=== PATIENT | male | born 1935 | race Caucasian/White ===

== ENCOUNTER 2020-06-17 13:45 | Outpatient (CLI) | payer MEDICARE ==
[2020-06-17] MEDS ORDERED: APIX5TAB PO (14:23)
== END 2020-06-17 23:59 | disposition home or self-care (01) ==
LOC: STAR 13:45
PROVIDERS: ATTEND Orthopaedic Surgery
DX: Z01.812 Encounter for preprocedural laboratory examination (principal); Z20.822 Contact with and (suspected) exposure to COVID-19; R22.31 Localized swelling, mass and lump, right upper limb; M19.041 Primary osteoarthritis, right hand; I48.91 Unspecified atrial fibrillation; R94.31 Abnormal electrocardiogram [ECG] [EKG]
CPT/HCPCS: 93005; U0003

== ENCOUNTER 2020-06-22 12:33 | Day surgery (SDC) | payer MEDICARE ==
[~2020-06-22] VITALS: Ht 182.9 cm; Wt 87.0 kg
[~2020-06-22 12:33] MED LIST: APIX5TAB PO
[2020-06-22 14:09] VITALS: BP 138/95
[2020-06-22] MEDS ORDERED: CHLORHEXIDINE 15 ML UDC ONE (14:10)
[2020-06-22] MEDS ORDERED: BUPIVACAINE/PF 0.5% ONE (14:13)
[2020-06-22] MEDS ORDERED: LACTATED RINGERS 1,000 ML IV SCH (14:30)
[2020-06-22] MEDS ORDERED: CHLORHEXIDINE 15 ML UDC PO ONE (14:30)
[2020-06-22] MEDS ORDERED: PROPOFOL 10 MG/ML, 20ML ONE (15:25)
[2020-06-22] MEDS ORDERED: ONDANSETRON 2MG/ML, 2ML ONE (15:25)
[2020-06-22] MEDS ORDERED: CEFAZOLIN 1,000 MG ONE (15:25)
[2020-06-22] MEDS ORDERED: FENTANYL PF 100 MCG/2ML ONE (15:59)
[2020-06-22] MEDS ORDERED: HYDROmorphone 1 MG/ML, 1ML INJ IVPush PRN (16:30)
[2020-06-22] MEDS ORDERED: LORazepam 2 MG/ML, 1ML IVPush PRN (16:30)
[2020-06-22] MEDS ORDERED: LABETALOL 5MG/ML, 20ML IV PRN (16:30)
[2020-06-22] MEDS ORDERED: METHOCARBAMOL 1,000 MG in DEXTROSE 5% 100 ML IV PRN (16:30)
[2020-06-22] MEDS ORDERED: OXYcodone 5 MG/5 ML ORAL.SOL UDC PO PRN (16:30)
[2020-06-22] MEDS ORDERED: FENTANYL PF 100 MCG/2ML IV PRN (16:30)
[2020-06-22] MEDS ORDERED: EPHEDRINE 50 MG/ML, 1ML IVPush PRN (16:30)
[2020-06-22] MEDS ORDERED: hydrALAzine 20 MG/ML, 1ML IV PRN (16:30)
[2020-06-22] MEDS ORDERED: ONDANSETRON 2MG/ML, 2ML IVPush PRN (16:30)
[2020-06-22] MEDS ORDERED: HALOPERIDOL 5 MG/ML IV PRN (16:30)
[2020-06-22] MEDS ORDERED: ACETAMINOPHEN 325 MG TABLET PO PRN (16:30)
== END 2020-06-22 18:10 | disposition home or self-care (01) ==
LOC: OUT 12:33
PROVIDERS: ATTEND Orthopaedic Surgery
DX: R22.31 Localized swelling, mass and lump, right upper limb (principal); C44.622 Squamous cell carcinoma of skin of right upper limb, including shoulder; M19.042 Primary osteoarthritis, left hand; M19.041 Primary osteoarthritis, right hand; I10 Essential (primary) hypertension; I48.91 Unspecified atrial fibrillation
CPT/HCPCS: 11624; 15275; 88305; C9363; J3010; J7120; J0690; J2405; J2704

== ENCOUNTER 2020-07-20 12:10 | Day surgery (SDC) | payer MEDICARE ==
[~2020-07-20] VITALS: Ht 182.9 cm; Wt 88.3 kg
[2020-07-20] MEDS ORDERED: NEOSPORIN OINT, 15GM ONE (13:01)
[2020-07-20] MEDS ORDERED: MINERAL OIL 10 ML VIAL MC ONE (13:01)
[2020-07-20 13:02] VITALS: BP 132/90
[2020-07-20] MEDS ORDERED: EPINEPHRINE 1 MG/ML, 1ML ONE (13:02)
[2020-07-20] MEDS ORDERED: BACITRACIN 50,000 UNIT ONE (13:02)
[2020-07-20] MEDS ORDERED: THROMBIN 20,000 UNIT VIAL TP ONE (13:02)
[2020-07-20] MEDS ORDERED: LIDOCAINE/PF 1%, 30ML ONE (13:02)
[2020-07-20] MEDS ORDERED: LACTATED RINGERS 1,000 ML IV SCH (13:30)
[2020-07-20] MEDS ORDERED: CHLORHEXIDINE 15 ML UDC PO ONE (13:30)
[2020-07-20] MEDS ORDERED: PROPOFOL 10 MG/ML, 20ML ONE (13:36)
[2020-07-20] MEDS ORDERED: CEFAZOLIN 1,000 MG ONE (13:36)
[2020-07-20] MEDS ORDERED: FENTANYL PF 250 MCG/5ML ONE (13:36)
[2020-07-20] MEDS ORDERED: BUPIVACAINE/PF 0.5% ONE (13:50)
[2020-07-20] MEDS ORDERED: HYDROmorphone 1 MG/ML, 1ML INJ IVPush PRN (14:00)
[2020-07-20] MEDS ORDERED: hydrALAzine 20 MG/ML, 1ML IV PRN (14:00)
[2020-07-20] MEDS ORDERED: OXYcodone 5 MG/5 ML ORAL.SOL UDC PO PRN (14:00)
[2020-07-20] MEDS ORDERED: FENTANYL PF 100 MCG/2ML IV PRN (14:00)
[2020-07-20] MEDS ORDERED: ACETAMINOPHEN 325 MG TABLET PO PRN (14:00)
[2020-07-20] MEDS ORDERED: ONDANSETRON 2MG/ML, 2ML IVPush PRN (14:00)
[2020-07-20] MEDS ORDERED: MEPERIDINE/PF 25MG/0.5ML IVPush PRN (14:00)
[2020-07-20] MEDS ORDERED: morphine SULFATE 10 MG/ML, 1ML IVPush PRN (14:00)
[2020-07-20] MEDS ORDERED: LABETALOL 5MG/ML, 20ML IV PRN (14:00)
[2020-07-20] MEDS ORDERED: PHENYLEPHRINE 10 MG/ML ONE (14:32)
== END 2020-07-20 17:00 | disposition home or self-care (01) ==
LOC: OUT 12:10
PROVIDERS: ATTEND Orthopaedic Surgery
DX: Z09 Encounter for follow-up examination after completed treatment for conditions other than malignant neoplasm (principal); I48.91 Unspecified atrial fibrillation; Z20.822 Contact with and (suspected) exposure to COVID-19; Z79.01 Long term (current) use of anticoagulants; Z79.899 Other long term (current) drug therapy; Z86.711 Personal history of pulmonary embolism
CPT/HCPCS: 15240; 93005; J0171; J0690; J2370; J2704; J3010; J7120; U0003; U0005

== ENCOUNTER → 2020-07-28 | Outpatient (CLI) | payer MEDICARE | END | disposition home or self-care (01) | LOC: ROC 07:25 | PROVIDERS: ATTEND Radiology Radiation Oncology | DX: C44.622 Squamous cell carcinoma of skin of right upper limb, including shoulder (principal); M19.09 Primary osteoarthritis, other specified site; I48.91 Unspecified atrial fibrillation | CPT/HCPCS: 99214; G0463 ==